=== PATIENT | female | born 1985 | race Caucasian/White ===

== ENCOUNTER → 2020-07-28 11:40 | Outpatient (CLI) | payer OTHER, MEDICAID, SELFPAY ==
[2020-07-28 13:22] LABS: Add Manual Diff / Slide Review NO; Basophils Absolute Auto 0 /uL (0-100); Basophils Percent Auto 0.1 % (0-2); Eosinophils Absolute Auto 0 /uL (0-450); Eosinophils Percent Auto 0.3 % (2-4); Hemoglobin 10.7 g/dL (12.0-16.0); Lymphocytes Absolute Auto 1000 /uL (1100-4500); Lymphocytes Percent Auto 11.7 % (25-40); Mean Corpuscular HGB Conc 33.4 % (30-36); Mean Corpuscular Hemoglobin 29.4 PG (26-34); Mean Corpuscular Volume 87.8 fL (80-100); Monocytes Absolute Auto 600 /uL (0-900); Monocytes Percent Auto 6.5 % (3-14); Neutrophils Absolute Auto 6900 /uL (1500-7000); Neutrophils Percent Auto 81.4 % (50-75); Platelet Count 190 X10^3/uL (150-400); Red Blood Cell Count 3.64 X10^6/uL (4.0-5.2); Red Cell Distribution Width 13.4 % (11.6-14.8); White Blood Cell Count 8.5 X10^3/uL (4.5-11.0)
[2020-07-28 13:27] LABS: Appearance Urine UA CLEAR; Bilirubin Urine UA NEGATIVE (NEGATIVE); Color Urine UA YELLOW; Glucose Urine UA NEGATIVE (Negative); Ketones Urine UA NEGATIVE (NEGATIVE); Leukocyte Esterase Urine UA 1+ (NEGATIVE); Nitrite Urine UA NEGATIVE (Negative); Occult Blood Urine UA NEGATIVE (Negative); Protein Urine UA NEGATIVE (Negative); Urobilinogen Urine UA 0.2 E.U./dL (0.2)
[2020-07-28 13:35] LABS: UR Morphine/Opiate cutoff 300 Negative (Negative); Ur Creatinine Normal (Normal); Ur Specific Gravity Normal (Normal); Urine Amphetamines Negative (Negative); Urine Barbiturates Negative (Negative); Urine Benzodiazepines Negative (Negative); Urine Cocaine Negative (Negative); Urine MDMA Negative (Negative); Urine Methadone Negative (Negative); Urine Methamphetamines Negative (Negative); Urine Oxycodone Negative (Negative); Urine Phencyclidine Negative (Negative); Urine Tetrahydrocannabinol Negative (Negative); Urine Tricyclic Antidepressant Negative (Negative); Urine pH Normal (Normal)
[2020-07-28 13:40] LABS: pH Urine UA 5.5 (4.5-8.0)
[2020-07-28 13:41] LABS: Bacteria Urine None Seen; RBC Urine None Seen (0-5/HPF)
[2020-07-28 13:43] LABS: Culture Indicated Urine Specimen Cultured; Squamous Epithelial Cell Urine 1-5 /HPF (0-5/HPF); WBC Urine 1-5/HPF (0-5/HPF)
[2020-07-28 14:05] LABS: GTT (PREG) 1 Hour PP 50gm Dose 104 mg/dL (76-139)
[2020-07-28 15:15] LABS: Hepatitis B Surface Antigen NEGATIVE s/c (NEGATIVE); Rubella Antibody IgG 24.8 IU/mL (>15)
[2020-07-28 15:36] LABS: HIV 1 & 2 Ab/Ag 4th Gen Combo NEGATIVE (NEGATIVE); Hep C Virus Ab w/Reflex Quant NEGATIVE s/c (NEGATIVE)
[2020-07-29 04:36] LABS: RPR Screen Non Reactive (Non Reactive)
[2020-07-29 09:36] LABS: Varicella IgG Antibody 750 index (Immune >165)
== END ==
PROVIDERS: Referring Provider Obstetrics & Gynecology; Visit Provider Obstetrics & Gynecology
DX: Z34.93 Encounter for supervision of normal pregnancy, unspecified, third trimester (principal); Z34.03 Encounter for supervision of normal first pregnancy, third trimester; Z3A.36 36 weeks gestation of pregnancy
CPT/HCPCS: 36415; 80055; 80305; 81003; 81015; 82950; 86787; 86803; 86850; 86900; 86901; 87086; 87389

== ENCOUNTER → 2020-08-06 14:37 | Outpatient (CLI) | payer OTHER, MEDICAID, SELFPAY ==
[2020-08-07 12:21] LABS: Strep Grp B PCR NEG for Grp B Strep
== END ==
PROVIDERS: Visit Provider Obstetrics & Gynecology
DX: Z34.03 Encounter for supervision of normal first pregnancy, third trimester (principal); Z3A.35 35 weeks gestation of pregnancy
CPT/HCPCS: 87653

== ENCOUNTER 2020-08-16 14:30 | Outpatient (CLI) | payer OTHER, MEDICAID, SELFPAY ==
--- NOTE | 2020-08-17 06:59 | PM.OBTRLD ---
Visit Information Visit Information Date of evaluation: 08/16/20 Primary OB Provider: Estefani Lui On-call OB Provider: Estefani Lui Reason for Evaluation: Yes rupture of membranes Comments/Additional reasons for admission: Pt thinks that her water broke [facility] Medical History (Updated 08/13/20 @ 17:43 by Estefani Lui MD) Adopted (Acute) Late care (Acute ~07/28/20) Surgical History (Updated 07/28/20 @ 08:33 by Ruth Mcknight RN) H/O wisdom tooth extraction (Acute) History of ankle surgery (Acute ~2009) Social History marital status: unmarried,single lives independently: Yes pets and animals: Yes (family dogs ) education level: high school occupational status: employed current occupational exposures/hazards: Yes Previous occupational history: works a couple of jobs special [place] needs: No Smoking Status: Never smoker second hand exposure: No alcohol intake: former (occasional glass of wine) substance use type: does not use Evaluation Evaluation Baseline heart rate: 140 Variability: Moderate (11-25) monitor accelerations: Present monitor decelerations: Absent Category of Tracing: Reactive Cervical dilation (cm): 2 Cervical effacement (%): 80 station: -1 Non-invasive Membranes Rupture Test: negative Diagnosis, Plan/Disposition Plan/Disposition Plan: Assessment: 35-year-old 1 para 0 at 36-,5/7 weeks gestation No rupture of membranes Reactive nonstress test Plan: Discharge to home Follow-up in 3 days as scheduled OB Disposition: home
== END 2020-08-16 15:16 | disposition home or self-care (01) ==
LOC: LABOR 14:50 → OB 08-18 15:03
PROVIDERS: PCP Obstetrics & Gynecology; Referring Provider Obstetrics & Gynecology; Visit Provider Obstetrics & Gynecology
DX: Z03.71 Encounter for suspected problem with amniotic cavity and membrane ruled out (principal); Z3A.36 36 weeks gestation of pregnancy
CPT/HCPCS: 59025; 84112; G0378; G0379

== ENCOUNTER 2020-08-19 | Inpatient (IN) | payer OTHER, MEDICAID, SELFPAY ==
--- NOTE | 2020-08-19 | PATH_ITS ---
[facility] Accession Number: [id number] . 01 Material submitted: . fallopian tube - SEGMENT BILATERAL FALLOPIAN TUBES . 01 Clinical history: . EVALUATION OF LABOR . 01 Diagnosis: Segments of Bilateral Fallopian Tubes, Excisions: Cross-sections of segments of bilateral fallopian tubes. Focal decidualized stroma. Negative for dysplasia and malignancy. [facility] 08/24/2020 1353 Local . 01 Electronically signed: . Carline Mulligan MD, Pathologist NPI- [id number] . 01 Gross description: . Received in formalin, labeled segment bilateral fallopian tubes, and consists of two fallopian tube segments measuring 0.8 x 0.5 x 0.4 cm and 1.0 x 0.5 x 0.4 cm. The serosa is gruber-pink and smooth with multiple small cysts measuring 0.1 cm. Sectioning reveals a gruber mucosa and a stellate lumen measuring 0.2 cm in diameter. No fimbriae identified. The fallopian tubes are serially sectioned and each submitted in their own cassette in cassettes A1-A2. ([id number]) /[facility] 08/24/2020 [facility]3 Local . 01 Pathologist provided ICD-10: Z30.2 . 01 CPT . 855888 Performed at: 01 [facility] [address], [place], [place] [id number] MD Jose Juan Sy MD Phone: [phone]
--- NOTE | 2020-08-19 00:37 | PM.OBHP.1 ---
OB HPI Date/Time Date of admission: 08/18/20 Date Patient Seen: 08/19/20 Time Patient Seen: 00:37 History of Present Condition Chief complaint: Evaluation of labor : 1 Para: 0 Estimated Date of Delivery: 08/27/20 Estimated Gestational Age (weeks): 38+6 Narrative: Kayy Cuevas is a 35 year old female 1 para 0 at 38 and 6 7th weeks gestation by a third-trimester ultrasound who presents in 2nd stage of labor. History of Present care: limited care, initiated at week # (35), number of visits (3) and pounds weight gain (15+) Dating criteria: based on 3rd trimester US only Obstetrical complications: none Medical complications: none Preadmission Labs Blood type: A (+) positive -: Antibody screen: negative, GBS status: negative, HBsAG: negative, HIV: negative and RPR/VDLR: negative -: Rubella: immune and Varicella: immune HCT: 32 HCAB: negative Urine: Negative Prior (ies) History: None Evaluation Evaluation Baseline heart rate: 125 Variability: Moderate (11-25) monitor accelerations: Present monitor decelerations: Early Contraction Frequency (minutes): 3 Uterine Contraction Intensity: Strong/Firm Cervical dilation (cm): 10 Cervical effacement (%): 100 station: +1 Comments: Thin to moderate MS[facility] Medical History (Updated 08/13/20 @ 17:43 by Estefani Lui MD) Adopted (Acute) Late care (Acute ~07/28/20) Surgical History (Updated 07/28/20 @ 08:33 by Ruth Mcknight RN) H/O wisdom tooth extraction (Acute) History of ankle surgery (Acute ~2009) Social History marital status: unmarried,single lives independently: Yes pets and animals: Yes (family dogs ) education level: high school occupational status: employed current occupational exposures/hazards: Yes Previous occupational history: works a couple of jobs special [place] needs: No Smoking Status: Never smoker second hand exposure: No alcohol intake: former (occasional glass of wine) substance use type: does not use Meds Home Medications and Allergies Home Medications Medication Instructions Recorded Confirmed Type No Known Home Medications 08/06/20 08/13/20 History Allergies Allergy/AdvReac Type Severity Reaction Status Date / Time acetaminophen [From Vicodin] Allergy Intermediate Vomiting Verified 08/13/20 16:43 hydrocodone [From Vicodin] Allergy Intermediate Vomiting Verified 08/13/20 16:43 Exam Vital Signs (past 8 hours): Generally: Patient in moderate distress secondary to pain of contractions Lungs: CTA bilat CV: Regular rate and rhythm Estimated weight: 6 lb Extremities: No edema, 1+ DTRs Assessment and Plan Assessment and Plan Assessment and Plan narrative: Assessment: 35-year-old 1 para 0 at 38-,6/7 weeks gestation by a 3rd trimester ultrasound who presents and 2nd stage of labor Plan: Expected management to spontaneous vaginal delivery Thin to moderate meconium stained amniotic fluid Pediatrics notified Time Spent with Patient Total time spent with greater than 50% in coordination of care (as documented) at patient's floor/unit and/or counseling patient:: 15-24 minutes
--- NOTE | 2020-08-19 00:49 | PM.OBPRVD ---
Events: Meconium Stained Fluid (thin) Labor & Delivery Delivery date: 08/19/20 Cervical ripening method: none Induction method: none Delivery monitor: external FHT Route of delivery: vacuum extraction Indication for instrumentation: maternal exhaustion Episiotomy description: None L&D Laceration Description: Periurethral - 1st Degree, Perineal - 2nd Degree and Vaginal - 2nd Degree Delivery repair: vicryl (2-0) and chromic (2-0, 4-0) Estimated blood loss (mL): 150 Anesthesia type: Local (after delivery) Complications: None Narrative: Patient arrived on Labor and delivery complete and pushing involuntarily at 11:30 a.m.. She had had a spontaneous rupture of membranes on the flight from Monday with meconium-stained amniotic fluid. She pushed for another 96 minutes. At 1:06 a.m. a live female delivered with vacuum assistance over an intact perineum in the SHARON presentation. The vacuum was applied due to maternal exhaustion. No nuchal cord. The remainder of the body delivered without difficulty. The cord was double clamped and cut. Cord bloods were obtained. The vagina and perineum were inspected and there was a second-degree vaginal/perineal laceration. There were also bilateral superficial labial lacerations. The vagina and perineum were repaired in the usual fashion after 8 cc of 1% lidocaine were injected using 2 0 Vicryl in 2 0 chromic. The superficial labial lacerations were repaired with 4 0 chromic after 2 cc of 1% lidocaine were injected. Hemostasis was achieved. After the placenta delivered Pitocin was given in the IV fluids. Estimated blood loss 150 cc. Apgars 9 at 1 minute and 9 at 5 minutes. Baby up for adoption. Mom and stable to recovery. [place] Baby 1: gender: Female Presentation: vertex Placenta delivery description: Spontaneous cord vessel description: Clamped/Cut score (1 min): 9 score (5 min): 9 Plan for aftercare: To Routine care
[2020-08-19] MEDS: fentaNYL 100 MCG/2 ML INJ (01:10)
[2020-08-19] MEDS: OXYTOCIN PREMIX 30 UNIT/500 ML PLAST..BAG 300 UNIT IV (02:35)
[2020-08-19 02:36] LABS: Add Manual Diff / Slide Review NO; Basophils Absolute Auto 0 /uL (0-100); Basophils Percent Auto 0.1 % (0-2); Eosinophils Absolute Auto 0 /uL (0-450); Hematocrit 34.3 % (36-46); Hemoglobin 11.4 g/dL (12.0-16.0); Lymphocytes Absolute Auto 500 /uL (1100-4500); Lymphocytes Percent Auto 2.3 % (25-40); Mean Corpuscular HGB Conc 33.2 % (30-36); Mean Corpuscular Hemoglobin 29.2 PG (26-34); Mean Corpuscular Volume 87.9 fL (80-100); Monocytes Absolute Auto 1100 /uL (0-900); Monocytes Percent Auto 4.5 % (3-14); Neutrophils Absolute Auto 22100 /uL (1500-7000); Neutrophils Percent Auto 93.1 % (50-75); Platelet Count 195 X10^3/uL (150-400); Red Cell Distribution Width 14.9 % (11.6-14.8); White Blood Cell Count 23.7 X10^3/uL (4.5-11.0)
--- NOTE | 2020-08-19 12:25 | PM.PREOP ---
Pre-operative Note COVID-19 COVID-19 status: Negative Result date/Date tested (Pos, Neg/Pending): 08/18/20 Interval Note History & Physical reviewed/Exam performed by Physician: Yes Changes to H&P: No H&P completed within 30 days and has changed as indicated here:: 08/19/20
[2020-08-19] MEDS: LACTATED RINGERS 1,000 ML 42 ML IV (12:30)
--- NOTE | 2020-08-19 12:51 | SUR.OPER ---
Supine on padded OR bed, head on pillow, arms secured on padded arm boards at <90 degrees abduction, legs uncrossed, safety belt at thigh, tape over blanket over lower legs.
[2020-08-19] MEDS: BUPIVACAINE 0.5% W/ EPI (PF) 30 ML VIAL INJ (12:55)
[2020-08-19 13:12] VITALS: BP 146/90; PULSE 66; RESP 16; TEMP 36.6; O2SAT 100
[2020-08-19 13:17] VITALS: BP 146/90; PULSE 69; RESP 16; O2SAT 100
[2020-08-19 13:22] VITALS: BP 144/92; PULSE 66; RESP 14; O2SAT 99
[2020-08-19 13:27] VITALS: BP 147/87; PULSE 62; RESP 14; O2SAT 100
[2020-08-19] MEDS: ONDANSETRON 4 MG/2 ML INJ IV (13:31)
[2020-08-19 13:32] VITALS: BP 151/82; PULSE 58; RESP 14; O2SAT 100
[2020-08-19] MEDS: OXYCODONE IR 5 MG TABLET PO (13:32)
[2020-08-19] MEDS: IBUPROFEN 600 MG TABLET PO (17:47)
[2020-08-19] MEDS: OXYCODONE/ACETAMINOPHEN 5/325 TABLET 1 TAB PO (19:34)
[2020-08-20] MEDS: IBUPROFEN 600 MG TABLET PO ×2 (02:03→09:24)
--- NOTE | 2020-08-20 07:19 | PM.GYNOP.1 ---
Operative Date/Time/Diagnoses Date of procedure: 08/19/20 Time of procedure: 13:00 Pre-op diagnosis: Desires permanent sterilization Post-op diagnosis: same Procedure & Clinicians Procedure: Procedures Operation Date: 08/19/20 12:15 Actual Procedures Side Surgeon p Post Bilateral Tubal Ligation Bilateral Estefani Lui MD Indications: Desires permanent sterilization Surgeon: Estefani Lui Anesthesia Type: General (LMA) Operative Notes Findings: Normal tubes and ovaries Closure Type: primary Specimen(s): portion of left tube and portion of right tube Estimated blood loss (mL): 5 Blood products transfused: none Procedure in detail: After informed consent was obtained, the patient was taken to the operating room where she was placed in the dorsal supine position. After adequate LMA general anesthesia was achieved, she was prepped and draped in the usual sterile fashion. A time-out was performed. Two Allis clamps were placed approximately 2 cm apart just below the umbilical fold. A 1.5 cm incision was made. This was carried through to the underlying layer of fascia. The fascia was nicked in the midline and the incision extended bilaterally with the Myers scissors. The peritoneum was identified, grasped between 2 hemostats, and entered sharply with the Metzenbaum scissors. This incision was extended bluntly. The left tube and ovary were identified and carried out to the fimbriated end. The tube was grasped with a [place] 2[address] the distal end. A 2 cm segment of fallopian tube was ligated in the loop x2 with 0 plain chromic. A 1 cm segment of tube was excised. The ends of the tube were cauterized for hemostasis. This was repeated on the patient's right side. The tubes were returned to the abdomen. The the fascia was closed with 0 Vicryl in a running fashion. The subcutaneous layer was closed with 3 0 Vicryl with 2 simple interrupted sutures after irrigation. The skin was closed with 4 0 Biosyn in a subcuticular fashion. Steri-Strips, 2 x 2, and op site was placed. Sponge, lap, and instrument counts were correct x2. The patient tolerated the procedure well, and was taken to PACU in stable condition. Complications: none Post-operative Condition: stable Disposition: PACU Plan for aftercare: To the [facility] after recovery
--- NOTE | 2020-08-20 07:23 | PM.OBPN.1 ---
Subjective - OB Subjective Patient comments: no complaints, incisional pain (Slight) and tolerating diet baby status: doing well, bottle feeding well and adopting out feeding status: exclusively bottle feeding Date Patient Seen: 08/19/20 Time Patient Seen: 17:30 Interval history: Patient is a 35-year-old 1 para 1 postop day # 0-1 status post vacuum assisted vaginal delivery and a tubal ligation. She is doing well. Slight incisional pain. Exam Vital Signs (past 8 hours): Oxygen Delivery Method Room Air Narrative Exam Narrative: Generally: Patient is sitting up in bed, eating dinner, no acute distress Abdomen: Soft and flat. Fundus: Firm at U -2 Incision: Clean dry and intact with op site Extremities: Negative Homans, no edema Objective Labs Result Diagrams: 08/19/20 02:17 Assessment & Plan Plan day: 0 plan OB: routine care Time Spent With Patient Time: Total time spent is greater than 50% in coordination of care (as documented) at patient's floor/unit and/or counseling patient: Time with patient: 15-24 minutes
[2020-08-20 07:55] LABS: Hematocrit 30.8 % (36-46); Hemoglobin 10.1 g/dL (12.0-16.0)
[2020-08-20] MEDS: DOCUSATE 100 MG CAPSULE PO (09:22)
[2020-08-20] MEDS: PRENATAL VIT,CALC/IRON/FOLIC 1 TABLET 1 TAB PO (09:23)
--- NOTE | 2020-08-20 09:46 | P.DS_ITS ---
Discharge Providers Provider Date of admission: 08/19/20 00:00 Discharge Date: 08/20/20 Primary care physician: Estefani Lui MD Discharge provider: Estefani Lui MD Summary Hospital Course Date Patient Seen: 08/20/20 Time Patient Seen: 09:47 Procedures: Vacuum assisted vaginal delivery Second-degree laceration repair Hospital Course: Patient is a 35-year-old 1 para 1 day # 1 status post vacuum assisted vaginal delivery. The patient presented with complete dilation from Monday. Her water had broken on the flight over with thin meconium- stained amniotic fluid. She pushed for 1 and 0.5 hours. Due to maternal exhaustion a vacuum was placed. She had a second-degree laceration which was repaired. Her course was unremarkable except for a tubal ligation on day of delivery. Baby is being adopted out. She will follow up in 2 weeks for a postop visit by [facility]. And a 6 week visit in. Peripartum Data Infant Delivery Method: Assisted Delivery (Vacuum) Laceration Description: Perineal - 2nd Degree Episiotomy description: None Procedures: Vacuum assisted vaginal delivery Second-degree laceration repair complications: none [place] 1: Gender: Female Disposition of : adopted out Status at Discharge Cognitive/behavioral status at discharge: oriented Functional status at discharge: independent ambulation Overall status at discharge: patient is progressing back to baseline Time Spent with Patient Time attestation: Total time spent providing and/or coordinating discharge se rvices: Time spent: Less than 30 minutes Objective Labs Result Diagrams: 08/20/20 06:44 Labs: Laboratory Results - last 24 hr 08/20/20 06:44 Hgb 10.1 L Hct 30.8 L Exam Vital Signs (past 8 hours): Oxygen Delivery Method Room Air Discharge Plan Discharge Plan Patient Disposition: Home Discharge comment: CALL WITH FEVER, CHILLS, OR BLEEDING VAGINALLY MORE THAN A PAD AN HOUR IBUPROFEN 600 MG EVERY 6 HOURS NEEDED FOR CRAMPING TYLENOL 650 MG EVERY 6 HOURS NEEDED FOR PAIN Discharge orders & Medications Prescriptions: No Action No Known Home Medications RF: 0 Follow up/Referrals: Estefani Lui MD [Primary Care Provider] - 2 Weeks (Telehealth visit for incision check for tubal ligation 6 wk in person exam for PP visit) Diet/Activity/Treatments Diet: Regular Activity: No heavy lifting for the first 2 weeks No intercourse Skin/Wound/Dressing Care Report to your healthcare provider any signs of infection, such as:: chills, fever, increased pain, unusual drainage and unusual redness Dressing: Remove outer plastic dressing and guaze after first shower Visit Report/Discharge Packet Instructions: DI for Tubal Ligation, DI for Labor and Delivery, Vaginal Stand Alone Forms: Surgery Discharge Discharge Data Primary Care Provider: Estefani Lui
[2020-08-20 09:59] VITALS: BP 116/72; PULSE 53; RESP 16; TEMP 37.3
[2020-08-20 11:50] VITALS: BP 116/72; PULSE 53; RESP 16; TEMP 37.3
[2020-08-20] MEDS: OXYCODONE/ACETAMINOPHEN 5/325 TABLET 1 TAB PO (13:02)
== END 2020-08-20 01:30 | disposition home or self-care (01) | DRG 541 ==
PROVIDERS: Admitting Provider Obstetrics & Gynecology; PCP Obstetrics & Gynecology; Referring Provider Obstetrics & Gynecology; Visit Provider Obstetrics & Gynecology
PROC: 10D07Z6 Extraction of Products of Conception, Vacuum, Via Natural or Artificial Opening (ICD-10-PCS; CPT 58605; principal; 2020-08-19 12:15)
DX: O77.0 Labor and delivery complicated by meconium in amniotic fluid (principal); O75.81 Maternal exhaustion complicating labor and delivery; Z3A.38 38 weeks gestation of pregnancy; Z37.0 Single live birth; O70.0 First degree perineal laceration during delivery; O71.82 Other specified trauma to perineum and vulva; Z30.2 Encounter for sterilization
CPT/HCPCS: 36415; 58605; 59050; 59409; 85014; 85018; 85025; 86850; 86900; 86901; G0379; J1100; J2405; J2590; J2704; J3010